=== PATIENT | male | born 1970 | race Caucasian/White ===

== ENCOUNTER 2020-10-13 06:09 | Emergency (ER) | payer OTHER, SELFPAY ==
[2020-10-13 06:11] VITALS: BP 169/105; PULSE 93; RESP 17; TEMP 36.5; O2SAT 98; BMI 33.1
--- NOTE | 2020-10-13 06:28 | CTR_ITS ---
PROCEDURE INFORMATION: Exam: CT Angiography Chest With Contrast Exam date and time: 10/13/2020 6:47 AM Age: 50 years old Clinical indication: Pain; Shortness of breath; Other: Joint; Additional info: Dypsnea / post vasquez TECHNIQUE: Imaging protocol: Computed tomographic angiography of the chest with intravenous contrast. 3D rendering (Not supervised by radiologist): MIP and/or 3D reconstructed images were created by the technologist. Radiation optimization: All CT scans at this facility use at least one of these dose optimization techniques: automated exposure control; mA and/or kV adjustment per patient size (includes targeted exams where dose is matched to clinical indication); or iterative reconstruction. Contrast material: OMNI 350; Contrast volume: 72 ml; Contrast route: INTRAVENOUS (IV); COMPARISON: No relevant prior studies available. RADIATION DOSE METRICS: Total DLP (mGy-cm): 613.91 FINDINGS: Pulmonary arteries: No pulmonary embolus in the opacified pulmonary arteries. Aorta: Ectasia of the thoracic aorta. Lungs: Mild interstitial prominence. 1 and 3 mm right middle lobe nodules (series 2: Images 264 and 283). 9 mm nodular lesion with spiculated margins in the anterior segment of the left lower lobe (series 2: Image 415). Highly suspicious nodule(s). Consider PET/CT, or tissue sampling.(Reference: [facility]). Pleural space: No pleural effusion. Heart: Left ventricular hypertrophy. Lymph nodes: Multiple lymph nodes, the majority of which are subcentimeter in size. Upper abdomen: Fatty infiltration of the liver. Splenic granuloma. Questionable wall thickening in the nondistended stomach. Left adrenal nodularity. Bones/joints: Schmorl's nodes and degenerative change . Soft tissues: Gynecomastia. CT/CT angio chest PE protcl [id number] IMPRESSION: 1. No pulmonary embolus in the opacified pulmonary arteries. 2. 9 mm nodular lesion with spiculated margins in the anterior segment of the left lower lobe (series 2: Image 415). Highly suspicious nodule(s). Consider PET/CT, or tissue sampling.(Reference: Serahon). 3. Additional findings as described above. Radiation Dose CTDIVOL = (mGy): DLP = 613.91 (mGy-cm)
--- NOTE | 2020-10-13 06:28 | W.ED.GENADLT ---
HPI - General Adult General: Chief complaint: General Medical Stated complaint: Joint pain Time Seen by Provider: 10/13/20 06:19 History of Present Illness: HPI narrative: 50-year-old male into the emergency department with complaints of diffuse arthralgias and dyspnea on exertion. This patient was well until August when he came down with coronavirus and unfortunately since that time he has had some significant difficulty with the 2 above complaints. The patient has been seen by his primary care physician and was most recently placed on prednisone after a markedly elevated sedimentation rate came back. He reports the prednisone significantly helped him but once he is come off the prednisone his symptoms returned with a vengeance. Patient also reports some significant difficulty with dyspnea on exertion and some feelings of cold chills. Patient has nonproductive cough. 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 He does not smoke or drink. No other symptoms reported. He has noticed his blood pressures been running fairly high of late. Associated symptoms: Reports dyspnea and malaise; Deny chest pain, headache(s), nausea or vomiting Review of Systems General: Reports: 10 or more systems reviewed and unremarkable except in HPI and below Const: Reports: chills, body aches, change in appetite, fatigue and malaise; Denies: fever(s) Eyes: Denies: change in vision ENMT: Denies: throat pain or odynophagia Card: Denies: chest pain Resp: Reports: dyspnea and non-productive cough; Denies: productive cough or wheezing GI: Denies: abdominal pain, nausea or vomiting Musc: Reports: joint pain and joint swelling Neuro: Denies: headache(s) or numbness in extremities Physical Exam Const: COMMON NORMALS: no acute distress, patient oriented x3 and no limitations EXAM LIMITATIONS: no altered mental status GENERAL APPEARANCE: cooperative, comfortable, well kempt and well developed; not in distress HENMT: COMMON NORMALS: Normal external nose present FACE & SINUS: normal facial exam and sinuses nontender NOSE: Normal external nose present Neck/C-Spine: COMMON NORMALS: full ROM, no lymphadenopathy and no JVD Chest: COMMONS NORMALS: normal inspection of the chest Breast/axilla inspection: Yes no chest deformity, asymmetry, normal contours, no nodules, masses, tenderness Resp: COMMON NORMALS: No use of accessory muscles; negative for clear to auscultation bilaterally AUSCULTATION: not clear to auscultation bilaterally, crackles and rales Cardio: COMMON NORMALS: no JVD, S1 normal heart sound present and S2 normal heart sound present HEART SOUNDS: S1 normal heart sound present and S2 normal heart sound present GI: COMMON NORMALS: Normal to inspection, nondistended, normoactive bowel sounds present INSPECTION: Yes normal to inspection AUSCULTATION: Yes normoactive bowel sounds Neuro: COMMON NORMALS: patient oriented x3 CRANIAL NERVES: Yes CN normal except as noted Psych: APPEARANCE: Yes well kempt Course ED course: Patient remained stable throughout the emergency department course. Blood pressure came down nicely. He did have remaining elevated inflammatory markers white blood cell count was slightly elevated likely consistent with previous steroid use. There was no emergency or indication to be in the hospital identified on today's evaluation. He is CT scan revealed a 9 mm nodular lesion with some spiculated margins in the left lower lobe that will need further evaluated he is a smoker. I talked to him about the importance of follow-up on this and he may need rheumatology evaluation he has a prescription for prednisone that was given as a refill from his provider at [facility] with whom he needs to make a follow-up appointment with. Vital Signs: Vital signs: Vital Signs Temperature 97.7 F 10/13/20 06:11 Pulse Rate 85 10/13/20 08:15 Respiratory Rate 18 10/13/20 08:15 Blood Pressure 133/82 10/13/20 08:15 Pulse Oximetry 98 10/13/20 08:15 MDM - General Adult MDM Narrative: Medical decision making narrative: 50-year-old male in with concerns of diffuse arthralgias and shortness of breath after coronavirus infection. The patient appears to have either post coronavirus syndrome or concominant rheumatologic condition that has developed. Discussed differential is fairly broad and will begin a limited work-up here. Given his shortness of breath I think he would warrant CT scan of his chest to rule out pulmonary embolus and evaluate for his adventitious breath sounds. After we receive the labs back I will give him a dose of IV steroids or intramuscular steroids. Lab Data: Labs: Lab Results 10/13/20 10/13/20 10/13/20 Range/Units 06:44 06:44 06:44 WBC 13.1 H (4.0-10.0) 10^3/ uL RBC 5.02 (4.1-5.3) 10^6/u L Hgb 14.5 (11.7-16.6) g/dL Hct 44.7 (42.0-52.0) % MCV 89.0 (80-94) fL MCH 28.9 (28.0-34.0) pg MCHC 32.4 (30.0-36.0) g/dL RDW 12.4 (12.1-15.1) % Plt Count 221 (130-400) 10^3/c mm MPV 10.8 H (7.4-10.4) fL Neut % (Auto) 77.5 % Lymph % (Auto) 12.6 % [place] % (Auto) 8.0 % Eos % (Auto) 0.9 % Baso % (Auto) 0.4 % Neut # (Auto) 10.19 H (1.8-7.7) 10^3/u L Lymph # (Auto) 1.7 (0.8-4.8) 10^3/u L [place] # (Auto) 1.1 H (0.2-0.9) 10^3/u L Eos # (Auto) 0.1 (0.0-0.8) 10^3/u L Baso # (Auto) 0.1 (0.0-0.1) 10^3/u L Nucleated RBC % (a uto) 0 % Nucleated RBCs # 0.0 /100WBC ESR 51 H (0-10) mm/hr Sodium 134 L (136-145) mmol/L Potassium 4.3 (3.5-5.1) mmol/L Chloride 100 (98-107) mmol/L Carbon Dioxide 25 (22-29) mmol/L Anion Gap 13.3 (5-19) BUN 13 (6-20) mg/dL Creatinine 0.8 (0.7-1.2) mg/dL GFR Calculation 101.9 (90-130) mL/min Glucose 116 H (65-115) mg/dL Calculated Osmolal ity 279 L (285-295) mOsm/k g Calcium 9.4 (8.5-10.5) mg/dL Creatine Kinase 69 (39-308) U/L C-Reactive Protein 99.5 H (0.0-4.9) mg/L NT-Pro-B Natriuret Pep 187 H (0-125) pg/mL Discharge Plan Discharge Clinical Impression: Incidental pulmonary nodule, greater than or equal to 8mm Arthralgia Qualifiers: Joint pain location: unspecified Qualified Code(s): M25.50 - Pain in unspecified joint Condition: Stable Prescriptions: No Action prednisone 20 mg tablet 20 mg PO BID@0800,2000 RF: 0 Centrum Complete 18-400 mg-mcg Tablet 1 tab PO DAILY@0600 RF: 0 Activity Restrictions/Additional Instructions: 1. Take prednisone as directed. 2. Follow up with PCP within the week. 3. Needs to follow up on pulmonary nodule. 4. Return for new or worsening symptoms. Coding Level of Care Code ED Garment Sewing Machine Operator for Sanaz Fwd Exam Comprehensive
[2020-10-13 06:32] VITALS: BP 150/101; PULSE 84; RESP 18; O2SAT 95
[2020-10-13] MEDS: iohexol 350 mg/mL 100 mL Btl IV (07:05)
[2020-10-13 07:06] LABS: Basophils # 0.1 10^3/uL (0.0-0.1); Basophils % 0.4 %; Eosinophils # 0.1 10^3/uL (0.0-0.8); Eosinophils % 0.9 %; Hematocrit 44.7 % (42.0-52.0); Hemoglobin 14.5 g/dL (11.7-16.6); Lymphocytes # 1.7 10^3/uL (0.8-4.8); Lymphocytes % 12.6 %; Mean Corpuscular HGB Conc 32.4 g/dL (30.0-36.0); Mean Corpuscular Hemoglobin 28.9 pg (28.0-34.0); Mean Platelet Volume 10.8 fL (7.4-10.4); Monocytes # 1.1 10^3/uL (0.2-0.9); Neutrophils # 10.19 10^3/uL (1.8-7.7); Neutrophils % 77.5 %; Nucleated Red Blood Cells % 0 %; Platelet Count 221 10^3/cmm (130-400); Red Blood Count 5.02 10^6/uL (4.1-5.3); Red Cell Distribution Width 12.4 % (12.1-15.1); White Blood Count 13.1 10^3/uL (4.0-10.0)
[2020-10-13 07:13] VITALS: BP 163/102; PULSE 84; RESP 18; O2SAT 96
--- NOTE | 2020-10-13 07:17 | PC.NURSE ---
Received report, pt gone to CT.
--- NOTE | 2020-10-13 07:17 | PC.NURSE ---
Pt back from CT, alert and oriented. NO changes noted from report.
[2020-10-13 07:34] LABS: Anion Gap 13.3 (5-19); Blood Urea Nitrogen 13 mg/dL (6-20); C Reactive Protein 99.5 mg/L (0.0-4.9); Calcium 9.4 mg/dL (8.5-10.5); Carbon Dioxide 25 mmol/L (22-29); Chloride 100 mmol/L (98-107); Creatine Phosphokinase 69 U/L (39-308); Creatinine Clr Calc Pharmacy 152.6301; Glomerular Filtration Rate 101.9 mL/min (90-130); Glucose 116 mg/dL (65-115); NT Pro B Type Natriuretic Pept 187 pg/mL (0-125); Osmolality Calculated 279 mOsm/kg (285-295); Potassium 4.3 mmol/L (3.5-5.1); Sodium 134 mmol/L (136-145)
[2020-10-13 08:10] LABS: Erythrocyte Sedimentation Rate 51 mm/hr (0-10)
[2020-10-13 08:15] VITALS: BP 133/82; PULSE 85; RESP 18; O2SAT 98
--- NOTE | 2020-10-13 08:53 | ED_ITS ---
[facility] - General Adult General: Chief complaint: General Medical Stated complaint: Joint pain Time Seen by Provider: 10/13/20 06:19 Course Vital Signs: Vital signs: Vital Signs Temperature 97.9 F 10/13/20 09:09 Pulse Rate 86 10/13/20 09:09 Respiratory Rate 18 10/13/20 09:09 Blood Pressure 166/104 10/13/20 09:09 Pulse Oximetry 97 10/13/20 09:09 [facility] - General Adult Lab Data: Labs: Lab Results 10/13/20 10/13/20 10/13/20 Range/Units 06:44 06:44 06:44 WBC 13.1 H (4.0-10.0) 10^3/ uL RBC 5.02 (4.1-5.3) 10^6/u L Hgb 14.5 (11.7-16.6) g/dL Hct 44.7 (42.0-52.0) % MCV 89.0 (80-94) fL MCH 28.9 (28.0-34.0) pg MCHC 32.4 (30.0-36.0) g/dL RDW 12.4 (12.1-15.1) % Plt Count 221 (130-400) 10^3/c mm MPV 10.8 H (7.4-10.4) fL Neut % (Auto) 77.5 % Lymph % (Auto) 12.6 % [place] % (Auto) 8.0 % Eos % (Auto) 0.9 % Baso % (Auto) 0.4 % Neut # (Auto) 10.19 H (1.8-7.7) 10^3/u L Lymph # (Auto) 1.7 (0.8-4.8) 10^3/u L [place] # (Auto) 1.1 H (0.2-0.9) 10^3/u L Eos # (Auto) 0.1 (0.0-0.8) 10^3/u L Baso # (Auto) 0.1 (0.0-0.1) 10^3/u L Nucleated RBC % (a uto) 0 % Nucleated RBCs # 0.0 /100WBC ESR 51 H (0-10) mm/hr Sodium 134 L (136-145) mmol/L Potassium 4.3 (3.5-5.1) mmol/L Chloride 100 (98-107) mmol/L Carbon Dioxide 25 (22-29) mmol/L Anion Gap 13.3 (5-19) BUN 13 (6-20) mg/dL Creatinine 0.8 (0.7-1.2) mg/dL GFR Calculation 101.9 (90-130) mL/min Glucose 116 H (65-115) mg/dL Calculated Osmolal ity 279 L (285-295) mOsm/k g Calcium 9.4 (8.5-10.5) mg/dL Creatine Kinase 69 (39-308) U/L C-Reactive Protein 99.5 H (0.0-4.9) mg/L NT-Pro-B Natriuret Pep 187 H (0-125) pg/mL Discharge Plan Discharge Clinical Impression: Incidental pulmonary nodule, greater than or equal to 8mm Arthralgia Qualifiers: Joint pain location: unspecified Qualified Code(s): M25.50 - Pain in unspecified joint Condition: Stable Prescriptions: No Action prednisone 20 mg tablet 20 mg PO BID@0800,1999 RF: 0 Centrum Complete 18-400 mg-mcg Tablet 1 tab PO DAILY@0600 RF: 0 Activity Restrictions/Additional Instructions: 1. Take prednisone as directed. 2. Follow up with PCP within the week. 3. Needs to follow up on pulmonary nodule. 4. Return for new or worsening symptoms. Coding Level of Care Code ED Morale Officer for Sanaz Betancourt
[2020-10-13 09:09] VITALS: BP 166/104; PULSE 86; RESP 18; TEMP 36.6; O2SAT 97
[2020-10-14 12:33] LABS: Cyclic Citrullinated Peptide <16 UNITS
== END 2020-10-13 09:16 ==
PROVIDERS: Emergency Provider Family Medicine
DX: M25.50 Pain in unspecified joint (principal); R91.1 Solitary pulmonary nodule
CPT/HCPCS: 12345; 71275; 80048; 82550; 83880; 85025; 85651; 86140; 99283; Q9967

== ENCOUNTER → 2021-01-17 09:21 | Outpatient (BNVA) | payer OTHER, SELFPAY | PROVIDERS: PCP Physician Assistant; Referring Provider Orthopaedic Surgery; Visit Provider Orthopaedic Surgery | DX: G56.01 Carpal tunnel syndrome, right upper limb (principal) | CPT/HCPCS: 73110 ==

== ENCOUNTER → 2021-01-21 12:18 | Outpatient (BNVA) | payer OTHER, SELFPAY | PROVIDERS: PCP Physician Assistant; Visit Provider Orthopaedic Surgery | DX: Z01.812 Encounter for preprocedural laboratory examination (principal); Z20.822 Contact with and (suspected) exposure to COVID-19 | CPT/HCPCS: 87635 ==

== ENCOUNTER → 2021-02-11 14:01 | Outpatient (BNVA) | payer OTHER, SELFPAY | PROVIDERS: PCP Physician Assistant; Visit Provider Orthopaedic Surgery | DX: Z01.812 Encounter for preprocedural laboratory examination (principal); Z20.822 Contact with and (suspected) exposure to COVID-19 | CPT/HCPCS: 87635 ==

== ENCOUNTER 2021-02-17 05:47 | Day surgery (SDC) | payer OTHER, SELFPAY ==
[2021-01-26 13:31] VITALS: BMI 32.3
[2021-02-17 06:22] VITALS: BP 159/101; PULSE 82; RESP 18; TEMP 36.1; O2SAT 99
[2021-02-17] MEDS: sodium chloride 0.9% 1,000 ML 30 ML IV (06:26)
--- NOTE | 2021-02-17 06:42 | ANES.PREANE2 ---
Pre-Anesthetic Assessment Pre-Anesthetic Assessment: Height/Weight: Height 1.91 m Weight 117.48 kg Temp Pulse Resp BP Pulse Ox 97.0 F L 82 18 159/101 99 02/17/21 06:22 02/17/21 06:22 02/17/21 06:22 02/17/21 06:22 02/17/21 06:22 Preop Diagnosis: Carpal tunnel syndrome Right wrist Proposed Procedure: Operation Date: 02/17/21 07:00 Proposed Procedures p Carpal Tunnel Release Right 26891 G56.01(Right) - Georges Mendoza MD Familial anesthetic complications: none Was Beta Dainele taken within 24 hours: N/A Was Clonidine taken within 24 hours: N/A Last intake: Intake Last Liquid Date 02/16/21 Last Liquid Time 23:00 Last Solid Date 02/16/21 Last Solid Time 19:00 Social: Social History: Tobacco and No alcohol Exam: Pre-Anes Outpt Exam: alert, oriented x 3, clear to auscultation bilaterally and regular rate & rhythm Airway: Cervical ROM: WNL MP: 3 Dentition: Full CV/HEM: CV/HEM: HTN Meds/Allergies Current Medications: Current Medications Generic Name Dose Route Start Last Admin Trade Name Freq PRN Reason Stop Dose Admin Sodium Chloride 1,000 mls @ 30 ml s/hr 02/17/21 06:00 02/17/21 06:26 Sodium Chloride 0.9% IV 02/18/21 05:59 30 mls/hr .Q24H BATSHEVA Administration PFSH Anesthesia PFSH: Medical History Carpal tunnel syndrome of right wrist Social History Smoking and tobacco status: current every day smoker Alcohol intake: current Data Anesthesia Cardiac Studies: No Data to Display
--- NOTE | 2021-02-17 07:00 | W.PM.OPSUD ---
Surgery/Procedure H&P Update DATE OF PROCEDURE: February 17, 2021 PREOP DIAGNOSIS: Carpal tunnel syndrome Right wrist PLANNED PROCEDURE: Operation Date: 02/17/21 07:00 Proposed Procedures p Carpal Tunnel Release Right 01975 G56.01(Right) - Georges Mendoza MD
--- NOTE | 2021-02-17 07:01 | W.PM.OPSFHP ---
Same Day Surgery H&P Indication for Procedure/HPI DATE OF PROCEDURE: February 17, 2021 CHIEF COMPLAINT/INDICATIONFOR SURGICAL PROCEDURE: Right carpal tunnel syndrome, numbness tingling right hand PREOP DIAGNOSIS: Carpal tunnel syndrome Right wrist PLANNED PROCEDRUE: Operation Date: 02/17/21 07:00 Proposed Procedures p Carpal Tunnel Release Right 22167 G56.01(Right) - Georges Mendoza MD Medications/Allergies* Home Medications Medication Instructions Recorded Confirmed Type lvjkkuctxzxi-guxr-ldrdb acid 1 tab PO DAILY 10/13/20 02/17/21 History [Centrum Complete] amlodipine 10 mg PO DAILY 01/26/21 02/17/21 History lisinopril-hydrochlorothiazide 1 tab PO DAILY 01/26/21 02/17/21 History spironolactone 25 mg PO DAILY 01/26/21 02/17/21 History Allergies/Adverse Reactions Allergy/AdvReac Type Severity Reaction Status Date / Time Penicillins Allergy ALGY-Anaphy Verified 02/16/21 16:06 laxis Sulfa (Sulfonamide Allergy Unknown Verified 02/16/21 16:06 Antibiotics) Current Medications: Generic Name Dose Route Start Last Admin Trade Name Freq PRN Reason Stop Dose Admin Sodium Chloride 1,000 mls @ 30 mls/hr 02/17/21 06:00 02/17/21 06:26 Sodium Chloride 0.9% IV 02/18/21 05:59 30 mls/hr .Q24H BATSHEVA Administration Pertinent History/Comorbid Conditions* Medical History (Updated 01/10/21 @ 09:27 by Rubén Saunders MD) Carpal tunnel syndrome of right wrist Social History Smoking and tobacco status: current every day smoker Alcohol intake: current Pertinent Exam Findings alert, oriented x 3, clear to auscultation bilaterally, regular rate & rhythm and operative site marked Recommendations Surgery/Procedure today Coding Level of Care Code Acute Packing Machine Feeder for Sanaz Betancourt
[2021-02-17] MEDS: clindamycin 600 MG/50 ML PREMIX 100 MG IV (07:08)
--- NOTE | 2021-02-17 07:42 | PM.OP ---
Operative Report Date of procedure: February 17, 2021 Pre-op Diagnosis: Carpal tunnel syndrome Right wrist Post-op diagnosis: same Post-op Findings: Same Procedure Done: Right carpal tunnel release Pathology: none sent Anesthesia: Nerve Block ([place] block) Estimated blood loss (mL): 5 Tourniquet time (min): 20 Complications: None Findings: No mass or space-occupying lesions were seen within the carpal tunnel Condition: stable Disposition: PACU Procedure: Patient was taken to the operating room and anesthesia provided by the anesthesia service. She was prepped and draped with the arm exposed. A timeout was performed. A 3 cm long incision was made in line with the fourth ray from the distal edge of the carpal tunnel extending proximally. The subcutaneous fat and palmar fascia was divided with a scalpel blade. Under loupe magnification the ulnar neurovascular bundle was identified distally. A hemostat could be passed under the transverse carpal ligament allowing the distal 25% to be divided. A slotted guide was then passed beneath the transverse carpal ligament and the middle 50% divided. Blunt scissors were then passed over the guide freeing the proximal ligament. The tourniquet was deflated. Hemostasis provided with electrocautery. Wound edges were infiltrated with 10 cc of a half percent Marcaine solution. Skin edges were reapproximated with 3-0 Prolene. Sterile dressings were applied. The patient was taken to the recovery room in stable condition
[2021-02-17 07:45] VITALS: BP 115/80; PULSE 77; RESP 12; TEMP 36.8; O2SAT 95
[2021-02-17 07:50] VITALS: BP 116/74; PULSE 75; RESP 18; O2SAT 96
[2021-02-17 07:55] VITALS: BP 122/77; PULSE 75; RESP 18; TEMP 36.8; O2SAT 96
[2021-02-17 08:03] VITALS: BP 111/79; PULSE 81; RESP 16; TEMP 36.6; O2SAT 98
[2021-02-17 08:17] VITALS: BP 121/80; PULSE 71; RESP 17; TEMP 36.6; O2SAT 97
--- NOTE | 2021-02-17 18:00 | ANE.PACU2 ---
Inpatient post-anesthesia follow up: Airway intact: Yes Vital signs: Temperature 97.9 F Pulse Rate 71 Respiratory Rate 17 Blood Pressure 121/80 Pulse Oximetry 97 Oxygen Delivery Me thod Room Air Oxygen Flow Rate Fraction of Inspir ed Oxygen Hydration adequate: Yes Nausea and vomiting: No Pain level: 2 Mental status: Baseline
== END 2021-02-17 08:32 | disposition home or self-care (01) ==
PROVIDERS: PCP Physician Assistant; Visit Provider Orthopaedic Surgery
PROC: (CPT 64721; principal; 2021-02-17 07:00)
DX: G56.01 Carpal tunnel syndrome, right upper limb (principal); I10 Essential (primary) hypertension; F17.210 Nicotine dependence, cigarettes, uncomplicated
CPT/HCPCS: 64721; J2250; J2704; J3010; J3490; J7030

== ENCOUNTER → 2021-04-08 15:38 | Outpatient (BNVA) | payer OTHER, SELFPAY | PROVIDERS: PCP Physician Assistant; Visit Provider Orthopaedic Surgery | DX: Z01.812 Encounter for preprocedural laboratory examination (principal); Z20.822 Contact with and (suspected) exposure to COVID-19 | CPT/HCPCS: 87635 ==

== ENCOUNTER 2021-04-14 05:45 | Day surgery (SDC) | payer OTHER, SELFPAY ==
[2021-04-13 13:36] VITALS: BMI 32.3
[2021-04-14 06:05] VITALS: BP 139/91; PULSE 83; RESP 16; TEMP 36.2; O2SAT 98
[2021-04-14] MEDS: sodium chloride 0.9% 1,000 ML 30 ML IV (06:21)
--- NOTE | 2021-04-14 06:40 | ANES.PREANE2 ---
Pre-Anesthetic Assessment Pre-Anesthetic Assessment: Height/Weight: Height 1.91 m Weight 117.48 kg Temp Pulse Resp BP Pulse Ox 97.2 F L 83 16 139/91 98 04/14/21 06:05 04/14/21 06:05 04/14/21 06:05 04/14/21 06:05 04/14/21 06:05 Preop Diagnosis: Carpal tunnel syndrome Left Proposed Procedure: Operation Date: 04/14/21 07:00 Proposed Procedures p left Carpal Tunnel Release [id number] g56.02(Left) - Georges Mendoza MD Was Beta Daniele taken within 24 hours: N/A Was Clonidine taken within 24 hours: N/A Last intake: Intake Last Liquid Date 04/13/21 Last Liquid Time 21:30 Last Solid Date 04/13/21 Last Solid Time 21:30 Social: Social History: Tobacco and No alcohol Exam: Pre-Anes Outpt Exam: alert, oriented x 3, clear to auscultation bilaterally and regular rate & rhythm Airway: Submandibular: WNL Cervical ROM: WNL MP: 2 Dentition: Chipped Pulmonary: Pulmonary: None reported CV/HEM: CV/HEM: HTN : : None reported Hepatic: Hepatic: None reported GI: GI: None reported Metabolic: Metabolic: None reported Musc/skel: Musc/skel: None reported Neuropsych: Neuropsych: None reported Anesthetic Plan: ASA status: 2 Anesthesia: Regional (specify below) Other: Bre Block with IVS Risk of > 500 ml blood loss (7ml/kg in children): No Meds/Allergies Current Medications: Current Medications Generic Name Dose Route Start Last Admin Trade Name Freq PRN Reason Stop Dose Admin Sodium Chloride 1,000 mls @ 30 ml s/hr 04/14/21 06:00 04/14/21 06:21 Sodium Chloride 0.9% IV 04/15/21 05:59 30 mls/hr .Q24H BATSHEVA Administration PFSH Anesthesia PFSH: Medical History Carpal tunnel syndrome of right wrist Social History Smoking and tobacco status: current every day smoker Alcohol intake: current Data Anesthesia Cardiac Studies: No Data to Display
--- NOTE | 2021-04-14 06:56 | W.PM.OPSUD ---
Surgery/Procedure H&P Update DATE OF PROCEDURE: April 14, 2021 DATE H&P PERFORMED: 03/28/21 H&P UPDATE INFORMATION: I have reviewed H&P completed within last 30 days PREOP DIAGNOSIS: Carpal tunnel syndrome Left PLANNED PROCEDURE: Operation Date: 04/14/21 07:00 Proposed Procedures p left Carpal Tunnel Release [id number] g56.02(Left) - Georges Mendoza MD
[2021-04-14] MEDS: clindamycin 600 MG/50 ML PREMIX 100 MG IV (06:57)
[2021-04-14 07:40] VITALS: BP 130/72; PULSE 74; RESP 16; TEMP 36.2; O2SAT 94
--- NOTE | 2021-04-14 07:41 | PM.OP ---
Operative Report Date of procedure: April 14, 2021 Pre-op Diagnosis: Carpal tunnel syndrome Left Post-op diagnosis: same Post-op Findings: Same Procedure Done: Left carpal tunnel Pathology: none sent Surgeon: Georges Mendoza Anesthesia: Nerve Block ([place] block) Estimated blood loss (mL): 0 Tourniquet time (min): 21 Condition: stable Disposition: PACU Procedure: Patient was taken to the operating room and anesthesia provided by the anesthesia service. She was prepped and draped with the arm exposed. A timeout was performed. A 3 cm long incision was made in line with the fourth ray from the distal edge of the carpal tunnel extending proximally. The subcutaneous fat and palmar fascia was divided with a scalpel blade. Under loupe magnification the ulnar neurovascular bundle was identified distally. A hemostat could be passed under the transverse carpal ligament allowing the distal 25% to be divided. A slotted guide was then passed beneath the transverse carpal ligament and the middle 50% divided. Blunt scissors were then passed over the guide freeing the proximal ligament. The tourniquet was deflated. Hemostasis provided with electrocautery. Wound edges were infiltrated with 10 cc of a half percent Marcaine solution. Skin edges were reapproximated with 3-0 Prolene. Sterile dressings were applied. The patient was taken to the recovery room in stable condition
[2021-04-14 07:45] VITALS: BP 121/81; PULSE 76; RESP 16; O2SAT 93
[2021-04-14 07:50] VITALS: BP 121/81; PULSE 74; RESP 20; TEMP 36.2; O2SAT 93
[2021-04-14 07:58] VITALS: BP 102/77; PULSE 79; RESP 16; TEMP 36.6; O2SAT 95
[2021-04-14 08:13] VITALS: BP 122/87; PULSE 70; RESP 16; TEMP 36.6; O2SAT 95
--- NOTE | 2021-04-14 15:11 | ANE.PACU2 ---
Inpatient post-anesthesia follow up: Airway intact: Yes Vital signs: Temperature 97.8 F Pulse Rate 70 Respiratory Rate 16 Blood Pressure 122/87 Pulse Oximetry 95 Oxygen Delivery Me thod Room Air Oxygen Flow Rate Fraction of Inspir ed Oxygen Hydration adequate: Yes Nausea and vomiting: No Pain level: 2 Mental status: Baseline
== END 2021-04-14 08:30 | disposition home or self-care (01) ==
PROVIDERS: PCP Physician Assistant; Visit Provider Orthopaedic Surgery
PROC: (CPT 64721; principal; 2021-04-14 07:00)
DX: G56.02 Carpal tunnel syndrome, left upper limb (principal); I10 Essential (primary) hypertension; F17.210 Nicotine dependence, cigarettes, uncomplicated
CPT/HCPCS: 64721; J2704; J3010; J3490; J7030

== ENCOUNTER 2021-04-20 11:32 | Outpatient (CLI) | payer OTHER, SELFPAY | END 2021-04-20 11:33 | disposition home or self-care (01) | LOC: SPT 11:33 | PROVIDERS: PCP Physician Assistant; Visit Provider Orthopaedic Surgery | DX: Z48.89 Encounter for other specified surgical aftercare (principal); G56.02 Carpal tunnel syndrome, left upper limb | CPT/HCPCS: L3908 ==